=== PATIENT | male | born 1985 | race African-American/Black ===

== ENCOUNTER 2022-09-21 08:26 | Emergency (ER) | payer OTHER ==
[2022-09-21] MEDS ORDERED: IBUPROFEN 600 MG TABLET (FP) PO ONE (08:32)
[2022-09-21 09:16] VITALS: BP 148/94; PULSE 67; RESP 16; TEMP 97.9; BMI 38.5
== END 2022-09-21 09:18 | disposition home or self-care (01) ==
LOC: FER 08:26
DX: S46.911A Strain of unspecified muscle, fascia and tendon at shoulder and upper arm level, right arm, initial encounter (principal); X50.3XXA Overexertion from repetitive movements, initial encounter
CPT/HCPCS: 99281-25